=== PATIENT | female | born 1955 | race Caucasian/White ===

== ENCOUNTER 2020-05-17 21:38 | Emergency (ER) | payer MEDICARE, BC ==
[~2020-05-17] VITALS: Ht 185.4 cm; Wt 81.8 kg
[2020-05-17] MEDS ORDERED: TETanus/Pertussis (Acell)/Diphther VAC/PF (Tdap-Adult) 0.5ml syringe IMVAC ONE (22:50)
[2020-05-17] MEDS ORDERED: LIDOcaine 1% 30ml preserv. free vial IJ ONE (23:30)
[2020-05-17 23:41] VITALS: BP 162/92
[2020-05-18] MEDS ORDERED: AMOX-117 PO (00:33)
== END 2020-05-18 00:49 | disposition home or self-care (01) ==
LOC: ER 21:39
DX: S61.411A Laceration without foreign body of right hand, initial encounter (principal); Z79.899 Other long term (current) drug therapy; W54.0XXA Bitten by dog, initial encounter; Y93.89 Activity, other specified; Y92.89 Other specified places as the place of occurrence of the external cause; Y99.8 Other external cause status
CPT/HCPCS: 12001; 73130; 90471; 90715; 99283